=== PATIENT | female | born 1995 | race Caucasian/White ===

== ENCOUNTER 2018-07-21 13:56 | Emergency (ER) | payer MEDICAID ==
--- NOTE | 2018-07-21 14:13 | EDPHY ---
HPI/HX/ROS/PE/MDM Narrative: CHIEF COMPLAINT: Sore throat HISTORY OF PRESENT ILLNESS: This patient is a 22 year old female complaining of sore throat and difficulty breathing. She began feeling unwell several days ago and initially attributed this to seasonal allergies as she had rhinorrhea and a sore throat. Yesterday, she developed a cough and a worse sore throat and stayed home from work. She felt febrile and her noted she had a fever after checking her temperature. The patient is unsure how high her temperature was. She also vomited once after eating. Today, she continues to have a sore throat and woke with some difficulty breathing. She endorses tightness in her chest and a sharp pain in the mid-sternal area with deep inspiration. She has history of childhood asthma and her symptoms feel somewhat similar to this. The patient has tried DayQuil for relief of symptoms. No chills, palpitations, diarrhea, urinary complaints, headache, lightheadedness. REVIEW OF SYSTEMS: A comprehensive 10 system review of systems is otherwise negative aside from elements mentioned in the history of present illness and medical decision making. PAST MEDICAL HISTORY: Childhood asthma. Mirena IUD in place. SOCIAL HISTORY: . and child at bedside. Does not abuse tobacco, drugs, or alcohol. VITAL SIGNS: Reviewed by me GENERAL: Well-developed, well-nourished, resting comfortably in no respiratory distress. HEENT: Atraumatic. Eyes: No icterus, no injection. Mouth: moist mucous membranes. Erythematous tonsillar pillars bilaterally, no exudates or lesions, minimal tonsillar hypertrophy. Neck: supple with no adenopathy. LUNGS: Lower left chest wall tenderness to palpation. Breath sounds diminished throughout, no wheezes, rhonchi or rales. CARDIAC: Regular rate and rhythm, borderline tachycardic. No rubs, murmurs or gallops. ABDOMEN: Soft, nontender, nondistended, bowel sounds normal. BACK: No CVA tenderness. EXTREMITIES: No trauma. No edema. Range of motion is normal throughout. NEURO: Alert and oriented, grossly nonfocal. SKIN: Warm and dry, no rash. PSYCHIATRIC: Normal mentation, no agitation. Portions of this note were transcribed by a medical case manager. I personally performed a history, physical exam, medical decision making, and confirmed accuracy of information the transcribed note. ED Course: 22 y/o female presents with sore throat and difficulty breathing. On exam, breath sounds are diminished throughout, no wheezes, rhonchi or rales. Plan for chest x-ray, DuoNeb, strep swab. CXR negative for pneumonia. Strep screen negative. On re-examination after the nebulizer: Patient is moving much improved air. She reports her shortness of breath feels better. She will be discharged with azithromycin and albuterol neb meter dose inhaler. Follow up and return precautions discussed. She is comfortable with this plan. MDM: Differential diagnosis for the patient's shortness of breath was considered including but not limited to pulmonary infectious processes, bronchospasm, bronchitis, pneumonia, viral infection. - Data Points Imaging Results: Imaging Impressions Chest X-Ray 07/21/18 14:15 Impression: Normal chest. Imaging: I viewed and interpreted images myself Laboratory Results: 07/21/18 07/21/18 Unknown 14:10 Group A Strep Screen NEGATIVE (NEGATIVE) Group A Strep DNA Pending Medications Given: Discontinued Medications Albuterol (Proventil Neb) 3 ml IH EDNOW ONE Stop: 07/21/18 14:16 Last Admin: 07/21/18 14:20 Dose: 3 ml General Time Seen by Provider: 07/21/18 14:03 Initial Vital Signs: Initial Vital Signs Temperature (C) 36.7 C 07/21/18 13:59 Heart Rate 112 H 07/21/18 13:59 Respiratory Rate 16 07/21/18 13:59 Blood Pressure 109/94 H 07/21/18 13:59 O2 Sat (%) 96 07/21/18 13:59 O2 Delivery Mode Room Air Allergies/Adverse Reactions: No Known Allergies Allergy (Unverified 07/21/18 13:59) Home Medications: Medication Instructions Recorded Albuterol [Proventil Inhaler HFA 1 - 2 puffs IH Q4H #1 mdi 07/21/18 (*)] Azithromycin 250 - 500 mg PO DAILY #6 tablet 07/21/18 Departure - Departure Disposition: Home, Routine, Self-Care Clinical Impression: Bronchitis Upper respiratory infection Qualifiers: URI type: unspecified URI Qualified Code(s): J06.9 - Acute upper respiratory infection, unspecified Pharyngitis Qualifiers: Pharyngitis/tonsillitis etiology: unspecified etiology Qualified Code(s): J02.9 - Acute pharyngitis, unspecified Condition: Good Instructions: Upper Respiratory Infection (ED), Acute Bronchitis (ED) Additional Instructions: Please use the metered dose inhaler to help control your coughing and wheezing and shortness of breath. You been given a prescription of azithromycin. Please begin taking this as directed. Over the counter cold medications often contain both antihistamines and decongestants. If you have a runny nose, take an antihistamine. If you are congested, take a decongestant. If you have a sore throat, use Tylenol, or ibuprofen. Throat lozenges, throat sprays, or salt water gargles may also be helpful. Seek care urgently or follow up at the emergency department if he develop a fever, worsening symptoms despite the above treatment, shortness of breath, chest pain, vomiting, or other concerns. Referrals: Sandar Alvarez PA [Primary Care Provider] - As per Instructions Stand Alone Forms: Statement of Treatment, Work Excuse Prescriptions: Albuterol [Proventil Inhaler HFA (*)] 1 - 2 puffs IH Q4H #1 mdi Azithromycin 250 - 500 mg PO DAILY #6 tablet Report Scribed for: Sima Barnes Report Scribed by: Monica Pacheco Date of Report: 07/21/18 Time of Report: 16:42
[2018-07-21] MEDS ORDERED: ALBUTEROL 3 ML DEYVIAL IH ONE (14:15)
[2018-07-21 15:22] VITALS: BP 98/64
== END 2018-07-21 15:21 | disposition home or self-care (01) ==
DX: J40 Bronchitis, not specified as acute or chronic (principal); J06.9 Acute upper respiratory infection, unspecified; J02.9 Acute pharyngitis, unspecified
CPT/HCPCS: J7613